=== PATIENT | male | born 1970 | race Hispanic/Latino ===

== ENCOUNTER 2021-01-09 21:30 | Inpatient (IN) | payer OTHER ==
[~2021-01-09] VITALS: Ht 167.6 cm; Wt 86.6 kg
[2021-01-09 22:31] LABS: ABG BASE EXCESS -3.2 mmol/L (-2.0-3.0); ABG HCO3 20.8 mmol/L (21.0-28.0); ABG OXYGEN SATURATION 86.2 % (95.0-99.0); ABG PCO2 34 mmHg (35-48)
[2021-01-09 22:56] LABS: BASOPHILS % (AUTO) 0.1 % (0.0-5.0); HEMATOCRIT 45.7 % (42-54); LYMPHOCYTES % (AUTO) 9.9 % (21.0-51.0); MEAN CORPUSCULAR HEMOGLOBIN 29.9 pg (27.0-33.0); MEAN CORPUSCULAR HGB CONC 32.6 g/dL (32.0-36.0); MEAN CORPUSCULAR VOLUME 91.8 fL (79-99); MONOCYTES % (AUTO) 4.7 % (3.0-13.0); NEUTROPHILS % (AUTO) 84.7 % (40.0-77.0); PLATELET COUNT (AUTO) 230 K/uL (130-400); RED BLOOD CELL COUNT(AUTO) 4.98 MIL/uL (4.50-6.20); RED CELL DISTRIBUTION WIDTH 13.7 % (11.0-15.5); WHITE BLOOD COUNT (AUTO) 10.2 K/uL (4.8-10.8)
[2021-01-09 23:08] LABS: CREATININE 4.1 mg/dL (0.5-1.5); POTASSIUM 5.8 mmol/L (3.5-5.1)
[2021-01-09 23:12] LABS: ALBUMIN 2.2 g/dL (3.5-5.0); BILIRUBIN,TOTAL 0.4 mg/dL (0.2-1.0); TOTAL PROTEIN, SERUM 7.8 g/dL (6.0-8.3)
[2021-01-09 23:28] LABS: INR 1.05 (0.85-1.15); PROTHROMBIN TIME 11.4 SEC (9.6-11.6)
[2021-01-09] MEDS ORDERED: 0.9% NACL 250ML IVPB ONE (23:30)
[2021-01-09] MEDS ORDERED: ALBUTEROL INHALER 90MCG/INH IH ONE (23:30)
[2021-01-09] MEDS ORDERED: AZITHROMYCIN 500MG VIAL IVPB ONE (23:30)
[2021-01-09] MEDS ORDERED: CEFTRIAXONE 1G VIAL IVP ONE (23:30)
[2021-01-09 23:40] LABS: B-TYPE NATRIURETIC PEPTIDE < 5 pg/mL (0-100)
[2021-01-09 23:57] LABS: BILIRUBIN,URINE Negative (NEGATIVE); COLOR,URINE Yellow (YELLOW); GLUCOSE, URINE (UA) Negative (NEGATIVE); KETONES,URINE Negative (NEGATIVE); LEUKOCYTE ESTERASE ,URINE Negative (NEGATIVE); NITRATE,URINE Negative (NEGATIVE); OCCULT BLOOD,URINE Negative (NEGATIVE); PROTEIN,URINE >=1000 mg/dL (NEGATIVE)
[2021-01-09 23:59] LABS: APPEARANCE,URINE HAZY (CLEAR)
[2021-01-10] VITALS (9 sets, daily range): BP systolic 90–118; BP diastolic 60–73
[2021-01-10] MEDS ORDERED: ERGOCALCIFEROL (VITAMIN D2) 50,000 UNIT CAPSULE PO ONE
[2021-01-10] MEDS ORDERED: GUAIFENESIN-DM 200/20 MG 10 ML PO PRN
[2021-01-10] MEDS ORDERED: LACTATED RINGERS 1000ML 1,000 ML IV SCH
[2021-01-10 00:02] LABS: WBC,URINE 0-1 /HPF (0-1)
[2021-01-10 00:03] LABS: AMORPHOUS SEDIMENT,UR Few /LPF (None Seen); BACTERIA,URINE Few /HPF (None Seen); MUCUS,URINE Few LPF (None Seen); SQUAMOUS EPITHELIAL CELL,UR 0-2 /HPF (0-2)
[2021-01-10] MEDS ORDERED: AZITHROMYCIN 500MG+NS 250ML 250 ML IV ONE ×2 (00:16→23:13)
[2021-01-10] MEDS: LACTATED RINGERS 1000ML 1,000 ML IV SCH ×3 (00:23→18:58)
[2021-01-10] MEDS: DEXAMETHASONE SOD PHOSPHATE 4 MG/ML 1ML VIAL IVP SCH ×2 (00:23→23:24)
[2021-01-10] MEDS ORDERED: 0.9%NACL 1000ML 1,000 ML IV SCH (00:30)
[2021-01-10] MEDS: KAYEXALATE 15GM/60ML PO SCH ×3 (01:48→14:50)
[2021-01-10] MEDS ORDERED: ALBUTEROL INHALER 90MCG/INH IH PRN (02:00)
[2021-01-10 05:19] LABS: ABG BASE EXCESS -6.5 mmol/L (-2.0-3.0); ABG HCO3 18.1 mmol/L (21.0-28.0); ABG OXYGEN SATURATION 90.7 % (95.0-99.0); ABG PCO2 34 mmHg (35-48)
[2021-01-10 05:52] LABS: BASOPHILS % (AUTO) 0.1 % (0.0-5.0); HEMATOCRIT 39.5 % (42-54); LYMPHOCYTES % (AUTO) 6.3 % (21.0-51.0); MEAN CORPUSCULAR HEMOGLOBIN 30.6 pg (27.0-33.0); MEAN CORPUSCULAR HGB CONC 33.2 g/dL (32.0-36.0); MEAN CORPUSCULAR VOLUME 92.3 fL (79-99); MONOCYTES % (AUTO) 3.1 % (3.0-13.0); NEUTROPHILS % (AUTO) 89.9 % (40.0-77.0); PLATELET COUNT (AUTO) 209 K/uL (130-400); RED BLOOD CELL COUNT(AUTO) 4.28 MIL/uL (4.50-6.20); RED CELL DISTRIBUTION WIDTH 13.8 % (11.0-15.5); WHITE BLOOD COUNT (AUTO) 9.3 K/uL (4.8-10.8)
[2021-01-10] MEDS ORDERED: IPRATROPIUM 0.5 MG/2.5 ML INH IH SCH (06:00)
[2021-01-10 06:09] LABS: ALBUMIN 1.8 g/dL (3.5-5.0); BILIRUBIN,TOTAL 0.3 mg/dL (0.2-1.0); CREATININE 4.2 mg/dL (0.5-1.5); POTASSIUM 5.7 mmol/L (3.5-5.1); TOTAL PROTEIN, SERUM 6.6 g/dL (6.0-8.3)
[2021-01-10 06:16] LABS: CRP QUANTITATIVE 349.8 mg/L (0.00-9.0)
[2021-01-10] MEDS ORDERED: RENAL DOSE IV PRN (08:30)
[2021-01-10] MEDS ORDERED: PHARMACY COMMUNICATION MISC SCH (08:30)
[2021-01-10] MEDS ORDERED: FAMOTIDINE 20MG VIAL IV SCH (09:00)
[2021-01-10] MEDS: ASCORBIC ACID 500 MG TAB PO SCH (10:50)
[2021-01-10] MEDS: ZINC SULFATE 220 CAPSULE PO SCH (10:50)
[2021-01-10] MEDS: ENOXAPARIN SODIUM 40 MG/0.4 ML SYRINGE SQ SCH (10:51)
[2021-01-10] MEDS: CEFTRIAXONE 1G VIAL IVP SCH ×3 (14:30→23:22)
[2021-01-10] MEDS ORDERED: PRAV40TA3 PO (15:55)
[2021-01-10] MEDS ORDERED: LISI40TA9 PO (15:55)
[2021-01-10] MEDS ORDERED: AMLO-257 PO (15:56)
[2021-01-10] MEDS ORDERED: METO-482 PO (15:56)
[2021-01-10] MEDS: AZITHROMYCIN 500MG VIAL IVPB SCH (23:21)
[2021-01-10] MEDS: 0.9% NACL 250ML IVPB SCH (23:22)
[2021-01-11 03:29] VITALS: BP 104/62
[2021-01-11 03:46] LABS: BASOPHILS % (AUTO) 0.1 % (0.0-5.0); HEMATOCRIT 37.5 % (42-54); LYMPHOCYTES % (AUTO) 4.6 % (21.0-51.0); MEAN CORPUSCULAR HEMOGLOBIN 30.6 pg (27.0-33.0); MEAN CORPUSCULAR HGB CONC 33.3 g/dL (32.0-36.0); MEAN CORPUSCULAR VOLUME 91.9 fL (79-99); MONOCYTES % (AUTO) 4.5 % (3.0-13.0); NEUTROPHILS % (AUTO) 89.9 % (40.0-77.0); PLATELET COUNT (AUTO) 292 K/uL (130-400); RED BLOOD CELL COUNT(AUTO) 4.08 MIL/uL (4.50-6.20); RED CELL DISTRIBUTION WIDTH 13.6 % (11.0-15.5); WHITE BLOOD COUNT (AUTO) 13.4 K/uL (4.8-10.8)
[2021-01-11 04:07] LABS: ALBUMIN 1.8 g/dL (3.5-5.0); BILIRUBIN,TOTAL 0.2 mg/dL (0.2-1.0); CREATININE 2.8 mg/dL (0.5-1.5); POTASSIUM 4.4 mmol/L (3.5-5.1); TOTAL PROTEIN, SERUM 6.5 g/dL (6.0-8.3)
[2021-01-11 04:29] LABS: CRP QUANTITATIVE 211.7 mg/L (0.00-9.0)
[2021-01-11] MEDS: LACTATED RINGERS 1000ML 1,000 ML IV SCH ×2 (06:08→09:27)
[2021-01-11 08:04] VITALS: BP 118/59
[2021-01-11] MEDS: FAMOTIDINE 20MG VIAL IV SCH (09:18)
[2021-01-11] MEDS: ASCORBIC ACID 500 MG TAB PO SCH (09:19)
[2021-01-11] MEDS: ENOXAPARIN SODIUM 40 MG/0.4 ML SYRINGE SQ SCH (09:19)
[2021-01-11] MEDS: ZINC SULFATE 220 CAPSULE PO SCH (09:19)
[2021-01-11 11:49] VITALS: BP 109/72
[2021-01-11] MEDS: CEFTRIAXONE 1G VIAL IVP SCH ×2 (12:59→23:37)
[2021-01-11 16:00] VITALS: BP 115/74
[2021-01-11 19:59] VITALS: BP 113/69
[2021-01-11 23:35] VITALS: BP 124/67
[2021-01-11] MEDS: AZITHROMYCIN 500MG VIAL IVPB SCH (23:37)
[2021-01-11] MEDS: 0.9% NACL 250ML IVPB SCH (23:37)
[2021-01-11] MEDS: DEXAMETHASONE SOD PHOSPHATE 4 MG/ML 1ML VIAL IVP SCH (23:37)
[2021-01-12] MEDS: LACTATED RINGERS 1000ML 1,000 ML IV SCH (02:02)
[2021-01-12 03:46] VITALS: BP 136/79
[2021-01-12 04:36] LABS: HEMATOCRIT 39.8 % (42-54); MEAN CORPUSCULAR HEMOGLOBIN 30.3 pg (27.0-33.0); MEAN CORPUSCULAR HGB CONC 32.4 g/dL (32.0-36.0); MEAN CORPUSCULAR VOLUME 93.4 fL (79-99); PLATELET COUNT (AUTO) 355 K/uL (130-400); RED BLOOD CELL COUNT(AUTO) 4.26 MIL/uL (4.50-6.20); RED CELL DISTRIBUTION WIDTH 13.6 % (11.0-15.5); WHITE BLOOD COUNT (AUTO) 13.9 K/uL (4.8-10.8)
[2021-01-12 04:56] LABS: LYMPHOCYTES % (MANUAL) 7 % (22-44); MONOCYTES % (MANUAL) 4 % (2-9); SEGMENTED NEUTROPHILS % 89 % (40-70)
[2021-01-12 05:03] LABS: MAN.DIFF COMMENT-IMPRESSION MANUAL DIFFERENTIAL
[2021-01-12 05:04] LABS: PLATELET MORPHOLOGY COMMENT ADEQUATE
[2021-01-12 05:09] LABS: MAGNESIUM 2.7 mg/dL (1.80-2.40); PHOSPHORUS 3.9 mg/dL (2.5-4.9)
[2021-01-12 05:22] LABS: ALBUMIN 1.8 g/dL (3.5-5.0); BILIRUBIN,TOTAL 0.2 mg/dL (0.2-1.0); CREATININE 2.3 mg/dL (0.5-1.5); CRP QUANTITATIVE 118.7 mg/L (0.00-9.0); POTASSIUM 5.2 mmol/L (3.5-5.1); TOTAL PROTEIN, SERUM 6.6 g/dL (6.0-8.3)
[2021-01-12 08:00] VITALS: BP 120/83
[2021-01-12] MEDS: ZINC SULFATE 220 CAPSULE PO SCH (08:48)
[2021-01-12] MEDS: ASCORBIC ACID 500 MG TAB PO SCH (08:48)
[2021-01-12] MEDS: ENOXAPARIN SODIUM 40 MG/0.4 ML SYRINGE SQ SCH (08:48)
[2021-01-12] MEDS: FAMOTIDINE 20MG VIAL IV SCH (08:48)
[2021-01-12 12:00] VITALS: BP 129/80
[2021-01-12] MEDS: CEFTRIAXONE 1G VIAL IVP SCH ×2 (12:09→23:44)
[2021-01-12 16:00] VITALS: BP 147/98
[2021-01-12] MEDS ORDERED: TRAZODONE HCL 50 MG TAB PO PRN (20:30)
[2021-01-12 20:37] VITALS: BP 148/97
[2021-01-12] MEDS ORDERED: AZITHROMYCIN 500MG+NS 250ML 250 ML IV ONE (22:35)
[2021-01-12 23:24] VITALS: BP 111/72
[2021-01-12] MEDS: AZITHROMYCIN 500MG VIAL IVPB SCH (23:30)
[2021-01-12] MEDS: DEXAMETHASONE SOD PHOSPHATE 4 MG/ML 1ML VIAL IVP SCH (23:44)
[2021-01-12] MEDS: 0.9% NACL 250ML IVPB SCH (23:45)
[2021-01-13 03:15] VITALS: BP 117/74
[2021-01-13 04:31] LABS: HEMATOCRIT 40.2 % (42-54); MEAN CORPUSCULAR HEMOGLOBIN 29.9 pg (27.0-33.0); MEAN CORPUSCULAR HGB CONC 31.8 g/dL (32.0-36.0); MEAN CORPUSCULAR VOLUME 93.9 fL (79-99); RED BLOOD CELL COUNT(AUTO) 4.28 MIL/uL (4.50-6.20); RED CELL DISTRIBUTION WIDTH 13.5 % (11.0-15.5); WHITE BLOOD COUNT (AUTO) 11.2 K/uL (4.8-10.8)
[2021-01-13 04:53] LABS: CREATININE 2.1 mg/dL (0.5-1.5); POTASSIUM 5.6 mmol/L (3.5-5.1)
[2021-01-13 07:33] LABS: ABG BASE EXCESS -1.9 mmol/L (-2.0-3.0); ABG HCO3 22.1 mmol/L (21.0-28.0); ABG OXYGEN SATURATION 92.2 % (95.0-99.0); ABG PCO2 36 mmHg (35-48)
[2021-01-13 08:00] VITALS: BP 118/77
[2021-01-13] MEDS: ZINC SULFATE 220 CAPSULE PO SCH (08:11)
[2021-01-13] MEDS: FAMOTIDINE 20MG VIAL IV SCH (08:11)
[2021-01-13] MEDS: ASCORBIC ACID 500 MG TAB PO SCH (08:11)
[2021-01-13] MEDS: ENOXAPARIN SODIUM 40 MG/0.4 ML SYRINGE SQ SCH (08:11)
[2021-01-13] MEDS ORDERED: ACETAMINOPHEN 325 MG TAB PO PRN (09:00)
[2021-01-13] MEDS ORDERED: ACETAMINOPHEN 650 MG SUPPOSITORY RC PRN (09:00)
[2021-01-13] MEDS ORDERED: KAYEXALATE 15GM/60ML PO SCH (09:30)
[2021-01-13] MEDS: CEFTRIAXONE 1G VIAL IVP SCH ×2 (11:11→23:06)
[2021-01-13 12:00] VITALS: BP 117/81
[2021-01-13 16:00] VITALS: BP 132/91
[2021-01-13 21:03] VITALS: BP 139/88
[2021-01-13] MEDS ORDERED: AZITHROMYCIN 500MG+NS 250ML 250 ML IV ONE (22:57)
[2021-01-13] MEDS: AZITHROMYCIN 500MG VIAL IVPB SCH (23:06)
[2021-01-13] MEDS: DEXAMETHASONE SOD PHOSPHATE 4 MG/ML 1ML VIAL IVP SCH (23:06)
[2021-01-13] MEDS: 0.9% NACL 250ML IVPB SCH (23:07)
[2021-01-13 23:24] VITALS: BP 134/90
[2021-01-14 03:05] VITALS: BP 130/86
[2021-01-14 03:59] LABS: BASOPHILS % (AUTO) 0.6 % (0.0-5.0); HEMATOCRIT 44.3 % (42-54); LYMPHOCYTES % (AUTO) 5.1 % (21.0-51.0); MEAN CORPUSCULAR HEMOGLOBIN 29.9 pg (27.0-33.0); MEAN CORPUSCULAR HGB CONC 32.3 g/dL (32.0-36.0); MEAN CORPUSCULAR VOLUME 92.7 fL (79-99); MONOCYTES % (AUTO) 4.4 % (3.0-13.0); NEUTROPHILS % (AUTO) 84.2 % (40.0-77.0); PLATELET COUNT (AUTO) 544 K/uL (130-400); RED BLOOD CELL COUNT(AUTO) 4.78 MIL/uL (4.50-6.20); RED CELL DISTRIBUTION WIDTH 12.9 % (11.0-15.5); WHITE BLOOD COUNT (AUTO) 11.9 K/uL (4.8-10.8)
[2021-01-14 04:17] LABS: BILIRUBIN,TOTAL 0.4 mg/dL (0.2-1.0); CREATININE 1.9 mg/dL (0.5-1.5); CRP QUANTITATIVE 35.3 mg/L (0.00-9.0); POTASSIUM 5.1 mmol/L (3.5-5.1); TOTAL PROTEIN, SERUM 7.1 g/dL (6.0-8.3)
[2021-01-14 08:00] VITALS: BP 126/91
[2021-01-14] MEDS: FAMOTIDINE 20MG VIAL IV SCH (08:32)
[2021-01-14] MEDS: ENOXAPARIN SODIUM 40 MG/0.4 ML SYRINGE SQ SCH (08:32)
[2021-01-14] MEDS: ASCORBIC ACID 500 MG TAB PO SCH (08:32)
[2021-01-14] MEDS: ZINC SULFATE 220 CAPSULE PO SCH (08:32)
[2021-01-14] MEDS: CEFTRIAXONE 1G VIAL IVP SCH ×2 (11:22→23:21)
[2021-01-14 12:00] VITALS: BP 130/88
[2021-01-14 16:00] VITALS: BP 126/86
[2021-01-14 20:38] VITALS: BP 150/99
[2021-01-14] MEDS ORDERED: AZITHROMYCIN 500MG+NS 250ML 250 ML IV ONE (22:35)
[2021-01-14] MEDS: 0.9% NACL 250ML IVPB SCH (23:21)
[2021-01-14] MEDS: DEXAMETHASONE SOD PHOSPHATE 4 MG/ML 1ML VIAL IVP SCH (23:21)
[2021-01-14] MEDS: AZITHROMYCIN 500MG VIAL IVPB SCH (23:21)
[2021-01-15] VITALS (7 sets, daily range): BP systolic 104–149; BP diastolic 67–97
[2021-01-15 05:17] LABS: ALBUMIN 1.9 g/dL (3.5-5.0); BILIRUBIN,TOTAL 0.4 mg/dL (0.2-1.0); CREATININE 2.1 mg/dL (0.5-1.5); CRP QUANTITATIVE 17.5 mg/L (0.00-9.0); POTASSIUM 5.7 mmol/L (3.5-5.1); TOTAL PROTEIN, SERUM 6.7 g/dL (6.0-8.3)
[2021-01-15 05:56] LABS: LYMPHOCYTES % (MANUAL) 11 % (22-44); MAN.DIFF COMMENT-IMPRESSION MANUAL DIFFERENTIAL; MONOCYTES % (MANUAL) 3 % (2-9); SEGMENTED NEUTROPHILS % 86 % (40-70)
[2021-01-15 05:57] LABS: PLATELET MORPHOLOGY COMMENT MARKED INCREASE
[2021-01-15 06:03] LABS: HEMATOCRIT 41.4 % (42-54); MEAN CORPUSCULAR HEMOGLOBIN 30.3 pg (27.0-33.0); MEAN CORPUSCULAR HGB CONC 32.6 g/dL (32.0-36.0); MEAN CORPUSCULAR VOLUME 92.8 fL (79-99); PLATELET COUNT (AUTO) 582 K/uL (130-400); RED BLOOD CELL COUNT(AUTO) 4.46 MIL/uL (4.50-6.20); RED CELL DISTRIBUTION WIDTH 12.8 % (11.0-15.5); WHITE BLOOD COUNT (AUTO) 11.5 K/uL (4.8-10.8)
[2021-01-15 06:39] LABS: HEMOGLOBIN A1C 8.1 % (4.0-6.0)
[2021-01-15] MEDS ORDERED: KAYEXALATE 15GM/60ML PO SCH (07:25)
[2021-01-15] MEDS: INSULIN HUMULIN R 100 UNIT/ML 3ML SQ SCH ×4 (07:30→21:00)
[2021-01-15] MEDS: ASCORBIC ACID 500 MG TAB PO SCH (08:58)
[2021-01-15] MEDS: FAMOTIDINE 20MG VIAL IV SCH (08:58)
[2021-01-15] MEDS: ZINC SULFATE 220 CAPSULE PO SCH (08:58)
[2021-01-15] MEDS: ENOXAPARIN SODIUM 40 MG/0.4 ML SYRINGE SQ SCH (08:59)
[2021-01-15] MEDS: FAMOTIDINE 20MG TAB PO SCH (16:38)
[2021-01-15] MEDS: CEFTRIAXONE 1G VIAL IVP SCH (16:38)
[2021-01-15] MEDS ORDERED: AMLODIPINE 5 MG TAB PO SCH (21:00)
[2021-01-15] MEDS ORDERED: SIMVASTATIN 20 MG TABLET PO SCH (21:00)
[2021-01-15] MEDS ORDERED: INSULIN GLARGINE 100 UNITS/ML 10 ML VIAL SQ SCH (21:00)
[2021-01-16] MEDS: CEFTRIAXONE 1G VIAL IVP SCH (00:24)
[2021-01-16] MEDS: AZITHROMYCIN 500MG VIAL IVPB SCH (00:24)
[2021-01-16] MEDS: 0.9% NACL 250ML IVPB SCH (00:24)
[2021-01-16 03:00] VITALS: BP 134/81
[2021-01-16 05:10] LABS: BASOPHILS % (AUTO) 0.5 % (0.0-5.0); EOSINOPHILS % (AUTO) 0.9 % (0.0-8.0); HEMATOCRIT 41.9 % (42-54); LYMPHOCYTES % (AUTO) 9.4 % (21.0-51.0); MEAN CORPUSCULAR HEMOGLOBIN 30.5 pg (27.0-33.0); MEAN CORPUSCULAR HGB CONC 33.2 g/dL (32.0-36.0); MEAN CORPUSCULAR VOLUME 92.1 fL (79-99); MONOCYTES % (AUTO) 5.4 % (3.0-13.0); NEUTROPHILS % (AUTO) 77.3 % (40.0-77.0); PLATELET COUNT (AUTO) 574 K/uL (130-400); RED BLOOD CELL COUNT(AUTO) 4.55 MIL/uL (4.50-6.20); RED CELL DISTRIBUTION WIDTH 12.7 % (11.0-15.5)
[2021-01-16 05:47] LABS: ALBUMIN 1.9 g/dL (3.5-5.0); BILIRUBIN,TOTAL 0.3 mg/dL (0.2-1.0); CRP QUANTITATIVE 10.7 mg/L (0.00-9.0); POTASSIUM 4.8 mmol/L (3.5-5.1); TOTAL PROTEIN, SERUM 6.5 g/dL (6.0-8.3)
[2021-01-16] MEDS: INSULIN HUMULIN R 100 UNIT/ML 3ML SQ SCH (06:12)
[2021-01-16 08:00] VITALS: BP 128/83
[2021-01-16] MEDS ORDERED: DEXAMETHASONE 4 MG TAB PO SCH (09:00)
[2021-01-16] MEDS: ZINC SULFATE 220 CAPSULE PO SCH (09:21)
[2021-01-16] MEDS: FAMOTIDINE 20MG TAB PO SCH (09:21)
[2021-01-16] MEDS: ASCORBIC ACID 500 MG TAB PO SCH (09:21)
[2021-01-16] MEDS: ENOXAPARIN SODIUM 40 MG/0.4 ML SYRINGE SQ SCH (09:22)
[2021-01-16 11:52] VITALS: BP 101/65
[2021-01-16] MEDS ORDERED: LINA5TAB PO (14:04)
[2021-01-16] MEDS ORDERED: ZINC220C6 PO (14:04)
[2021-01-16] MEDS ORDERED: ASCO500T20 PO (14:04)
[2021-01-16] MEDS ORDERED: DEXA6TAB PO (14:04)
[2021-01-16] MEDS ORDERED: LISI10TA24 PO (14:45)
[2021-01-16] MEDS ORDERED: METO-482 PO (14:45)
== END 2021-01-16 15:23 | disposition home or self-care (01) | DRG 177 ==
LOC: EDH 21:30 → EDHIP 23:37 → 2AH 01-10 22:33
PROVIDERS: ADMIT Internal Medicine; ATTEND Internal Medicine
DX: U07.1 COVID-19 (principal); J96.01 Acute respiratory failure with hypoxia; J12.82 Pneumonia due to coronavirus disease 2019; N17.9 Acute kidney failure, unspecified; E87.1 Hypo-osmolality and hyponatremia; E87.2 Acidosis; E87.5 Hyperkalemia; F17.290 Nicotine dependence, other tobacco product, uncomplicated; E66.9 Obesity, unspecified; Z68.30 Body mass index [BMI] 30.0-30.9, adult; R80.9 Proteinuria, unspecified; D64.9 Anemia, unspecified; E11.22 Type 2 diabetes mellitus with diabetic chronic kidney disease; E11.65 Type 2 diabetes mellitus with hyperglycemia; E78.5 Hyperlipidemia, unspecified; F17.210 Nicotine dependence, cigarettes, uncomplicated; I12.9 Hypertensive chronic kidney disease with stage 1 through stage 4 chronic kidney disease, or unspecified chronic kidney disease; N18.9 Chronic kidney disease, unspecified; Z79.01 Long term (current) use of anticoagulants; Z79.4 Long term (current) use of insulin; Z79.899 Other long term (current) drug therapy
CPT/HCPCS: 36415; 36600; 71045; 71250; 80048; 80053; 81001; 82435; 82728; 82803; 82947; 82948; 83036; 83605; 83615; 83735; 83880; 84100; 84132; 84145; 84295; 84484; 85018; 85025; 85027; 85378; 85610; 86140; 87040; 87635; 87637; 87804; 87880; 93005; 94760; G0378; J0456; J0696; J1100; J1650; J1815; J3490; J7030; J7050; J7120; J8540